=== PATIENT | female | born 1995 | race Two or more races ===

== ENCOUNTER 2025-01-30 06:01 | Emergency (ER) | payer SELFPAY ==
[~2025-01-30] VITALS: Ht 152.4 cm; Wt 69.9 kg
[2025-01-30] MEDS ORDERED: LIDOCAINE 1% INJ 50 ML MDV IJ ONE (07:13)
[2025-01-30] MEDS: LIDOCAINE HCL/PF 1% 30 ML VIAL TP ONE (07:29)
[2025-01-30] MEDS ORDERED: CLIN300C12 PO (07:32)
[2025-01-30] MEDS ORDERED: IBUP-1490 PO (07:32)
[2025-01-30 07:52] VITALS: BP 112/69; TEMP 98.1; O2SAT 97
== END 2025-01-30 07:52 | disposition home or self-care (01) ==
LOC: ER 06:09
DX: L02.511 Cutaneous abscess of right hand (principal)
CPT/HCPCS: 20610; 99283; J3490 ×2